=== PATIENT | male | born 1995 | race Caucasian/White ===

== ENCOUNTER 2019-06-05 18:35 | Emergency (ER) | payer OTHER ==
[~2019-06-05] VITALS: Ht 167.6 cm; Wt 65.5 kg
[2019-06-05 18:46] VITALS: BP 140/58
[2019-06-05 20:49] LABS: STREP SCREEN NEGATIVE
[2019-06-05] MEDS ORDERED: TAMIFLU 75MG75 MG PO (21:48)
[2019-06-05 21:52] VITALS: PULSE 91; TEMP 99.1
== END 2019-06-05 22:00 | disposition home or self-care (01) ==
LOC: COL.ER 18:35
PROVIDERS: Nurse Practitioner
DX: J11.1 Influenza due to unidentified influenza virus with other respiratory manifestations (principal)

== ENCOUNTER 2021-07-09 07:09 | Emergency (ER) | payer OTHER ==
[~2021-07-09] VITALS: Ht 167.6 cm; Wt 65.9 kg
[~2021-07-09 07:09] MED LIST: TAMIFLU 75MG75 MG PO
[2021-07-09 07:28] VITALS: BP 107/67; TEMP 98.6
[2021-07-09 08:51] LABS: STREP SCREEN NEGATIVE
[2021-07-09 09:44] VITALS: PULSE 74
== END 2021-07-09 09:44 | disposition home or self-care (01) ==
LOC: COL.ER 07:09
PROVIDERS: Emergency Medicine
DX: U07.1 COVID-19 (principal)